=== PATIENT | female | born 1945 | race Hispanic/Latino ===

== ENCOUNTER 2022-09-17 15:45 | Emergency (ER) | payer MEDICARE, OTHER ==
[~2022-09-17] VITALS: Ht 157.5 cm; Wt 80.7 kg
[~2022-09-17 15:45] MED LIST: Atorvastatin PO; Levothyroxine PO
== END 2022-09-17 19:20 | disposition home or self-care (01) ==
LOC: ER 16:13
DX: M79.661 Pain in right lower leg (principal); E78.5 Hyperlipidemia, unspecified; E03.9 Hypothyroidism, unspecified
CPT/HCPCS: 93971; 99283